=== PATIENT | male | born 1940 | race Caucasian/White ===

== ENCOUNTER → 2016-07-09 | Outpatient (CLI) | payer OTHER ==
[~2016-07-09] MED LIST: GADOBUTROL 10 ML VIAL IVP ONE
--- NOTE | 2016-07-09 16:00 | MR ---
MR Arteriogram of the [place], 9:45 a.m. Indication: Transient ischemic attack. 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 Technique: A gafz-os-bwmorv gradient echo technique was used for thin axial images at the skull base for evaluation of major vessels of the [place]. Three-dimensional technique was used with a 30-degree gradient echo flip angle and a traveling saturation band. Images were manipulated by the radiologist at the computer workstation. Comparison: None. Findings: Normal anterior and posterior circulation. Bilateral P1 segments are hypoplastic and domina nt bilateral posterior communicating arteries are the primary feeding vessels to the posterior cerebr al arteries (normal anatomic variation). No aneurysm, occlusion, or vascular malformation. Impression: Negative. No aneurysm or evidence of embolic disease.
--- NOTE | 2016-07-09 16:02 | MR ---
MR Angiogram of the Neck Indication: Transient ischemic attack. Technique: After a preliminary timing bolus run, a three-dimensional vascular fvuf-mq-[id number] study w as performed from the upper chest to the skull base, using a total of 10 mL Gadavist intravenously. I mages were manipulated by the radiologist at the computer workstation. Additionally, an axial T1 fat- suppressed sequence was obtained through the neck. Patient moved during the acquisition resulting in minimal motion artifact. Comparison: None. Findings: The aortic arch has typical 3-vessel branching anatomy. The common carotid, carotid bulbs , internal and external carotid arteries and vertebral arteries are all patent. Mild narrowing of the origin of the right internal carotid artery is less than 30%. The origin of the left internal caroti d artery is widely patent. Impression: 1. 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 2. No flow-limiting stenosis of the carotid or vertebral arteries. Comment: Stenoses calculated using NASCET criteria.
== END ==
LOC: FIMAGING 08:06
PROVIDERS: ATTEND Internal Medicine
DX: G45.9 Transient cerebral ischemic attack, unspecified (principal)
CPT/HCPCS: 70544; 70548; 70553; A9585

== ENCOUNTER 2016-09-30 12:55 | Emergency (ER) | payer OTHER ==
--- NOTE | 2016-09-30 13:55 | CPEKG ---
Heart Rate: 64 RR Interval: 938 P-R Interval: 200 QRSD Interval: 96 QT Interval: 424 QTC Interval: 438 P Diablo: 33 QRS Diablo: -32 T Wave Diablo: 29 EKG Severity - OTHERWISE NORMAL ECG - EKG Impression: SINUS RHYTHM EKG Impression: LEFT AXIS DEVIATION Electronically Signed By: Katt Brown 30-Sep-2016 20:40:32
[2016-09-30 14:27] VITALS: RESP 18
--- NOTE | 2016-09-30 14:32 | EDPHY ---
H & P Time Seen by Provider: 09/30/16 13:25 HPI/ROS: CHIEF COMPLAINT: dizziness HISTORY OF PRESENT ILLNESS: 76-year-old male with history of hypertension presents with dizziness. Yesterday afternoon he had an episode of dizziness while he was standing and talking to somebody in his yard. The dizziness is described as lightheadedness. The episode lasted approximately 2 minutes and then completely resolved. He felt fine the rest of the day. He had no other associated symptoms at that time. This morning he awoke and did not feel quite right. He took a shower and then had an episode of dizziness. After eating breakfast, his took his blood pressure and the systolic blood pressure was 174. He has been taking his blood pressure medications as prescribed. He takes lisinopril 40 mg daily and verapamil 240 mg daily. REVIEW OF SYSTEMS: Constitutional: No fever, no chills Eyes: No visual changes ENT: No sore throat Respiratory: No cough, no shortness of breath Cardiac: No chest pain Gastrointestinal: No nausea, no vomiting, no abdominal pain Genitourinary: No hematuria, no dysuria Musculoskeletal: No leg pain or swelling Skin: No rash Neurological: No headache, no numbness, no weakness Psychiatric: No depression Past Medical/Surgical History: Hypertension Smoking Status: Never smoked Physical Exam: General Appearance: Alert, pleasant Eyes: Pupils equal and round, no conjunctival pallor or injection, no nystagmus , EOMI ENT, Mouth: Mucous membranes moist Neck: Normal inspection Respiratory: Lungs are clear to auscultation Cardiovascular: Regular rate and rhythm, no murmur Gastrointestinal: Abdomen is soft and nontender Neurological: Alert, oriented x3, cranial nerves II through XII intact, motor 5 /5, sensory intact to light touch Skin: Warm and dry, no rash Extremities: Nontender, no pedal edema Psychiatric: Mood and affect normal Constitutional: Initial Vital Signs Temperature (C) 38.4 C H 09/30/16 13:11 Heart Rate 63 09/30/16 13:11 Respiratory Rate 16 09/30/16 13:11 Blood Pressure 159/96 H 09/30/16 13:11 O2 Sat (%) 98 09/30/16 13:11 O2 Delivery Mode Room Air Allergies/Adverse Reactions: aspirin Allergy (Verified 09/30/16 13:10) Home Medications: Medication Instructions Recorded HCTZ (RX) 04/19/14 Lisinopril 04/19/14 Verapamil 04/19/14 Cephalexin [Keflex (RX)] 500 mg PO QID 5 Days 05/11/14 Medical Decision Making - Diagnostics EKG Interpretation: EKG interpreted by me reveals normal sinus rhythm, no ST or T segment changes. Impression: Normal EKG ED Course/Re-evaluation: Patient presents with episodic dizziness, possibly related to elevated blood pressure. There is no evidence of dysrhythmia or TIA. Will place him on quality assurance monitor and obtain labs for further evaluation. The triage temperature was noted and I think is a clerical error. On recheck of his temperature, he is not febrile. He has not been ill recently. . bus monitor revealed normal sinus rhythm throughout. He remained asymptomatic throughout his emergency department stay. His blood pressure trended down throughout, with a systolic blood pressure of 1/24 on my last visit with him. I have encouraged him to follow up with Cardiology as he has multiple questions regarding his blood pressure medications and whether he should be taking Plavix or not. Feel that he is safe and stable for discharge. Differential Diagnosis: Dizziness including but not limited to peripheral and central causes of vertigo , orthostatic causes including dehydration, and blood loss. - Data Points Laboratory Results: Laboratory Results 09/30/16 14:12 09/30/16 14:12 Departure - Departure Disposition: Home, Routine, Self-Care Clinical Impression: Dizziness Condition: Good Instructions: Dizziness (ED) Referrals: Zach Berger MD [Medical Doctor] - As per Instructions (Call to make an appointment with Dr. Berger. )
[2016-09-30 14:33] LABS: % IMMATURE GRANULYOCYTES 0.3 % (0.0-1.1); ABSOLUTE IMMATURE GRANULOCYTES 0.02 10^3/uL (0.00-0.10); ADD DIFF? NO; ADD MORPH? NO; ADD SCAN? NO; ATYPICAL LYMPHOCYTE FLAG 0 (0-99); FRAGMENT RBC FLAG 0 (0-99); HEMATOCRIT 42.7 % (40.0-51.0); HEMOGLOBIN 14.7 g/dL (13.7-17.5); LEFT SHIFT FLG 0 (0-99); LIPEMIA HEMOLYSIS FLAG 90 (0-99); MEAN CELL HEMOGLOBIN 33.3 pg (27.9-34.1); MEAN CELL HEMOGLOBIN CONCENTR. 34.4 g/dL (32.4-36.7); MEAN CELL VOLUME 96.8 fL (81.5-99.8); MEAN PLATELET VOLUME 9.8 fL (8.7-11.7); PLATELET CLUMPS FLAG 0 (0-99); PLATELET COUNT 219 10^3/uL (150-400); RED BLOOD CELL COUNT 4.41 10^6/uL (4.40-6.38); RED CELL DISTRIBUTION WIDTH 13.1 % (11.5-15.2)
[2016-09-30 14:39] LABS: ANION GAP 11 mEq/L (8-16); CALCIUM 9.7 mg/dL (8.5-10.4); CARBON DIOXIDE 26 mEq/l (22-31); CHLORIDE 100 mEq/L (97-110); CREATININE 0.7 mg/dL (0.7-1.3); GLOMERULAR FILTRATION RATE > 60; GLUCOSE 89 mg/dL (70-100); SODIUM 137 mEq/L (134-144)
[2016-09-30 15:50] VITALS: BP 144/86; PULSE 85; TEMP 98.6; O2SAT 96
== END 2016-09-30 15:50 | disposition home or self-care (01) ==
DX: R42 Dizziness and giddiness (principal); I10 Essential (primary) hypertension

== ENCOUNTER → 2016-11-11 | Outpatient (CLI) | payer OTHER | LOC: BHFA 11:00 | PROVIDERS: ATTEND Internal Medicine Cardiovascular Disease | DX: R42 Dizziness and giddiness (principal) ==

== ENCOUNTER → 2016-11-17 | Outpatient (CLI) | payer OTHER | LOC: BHLMT 15:00 | PROVIDERS: ATTEND Internal Medicine Cardiovascular Disease | DX: I34.1 Nonrheumatic mitral (valve) prolapse (principal); I10 Essential (primary) hypertension; R42 Dizziness and giddiness | CPT/HCPCS: 93005-PO ==

== ENCOUNTER → 2018-07-18 | Outpatient (CLI) | payer OTHER | LOC: BHFA 16:15 | PROVIDERS: ATTEND Internal Medicine Cardiovascular Disease | DX: I34.1 Nonrheumatic mitral (valve) prolapse (principal) ==